=== PATIENT | male | born 1960 | race Caucasian/White ===

== ENCOUNTER 2020-06-29 14:01 | Outpatient (REF) | payer OTHER, SELFPAY | END 2020-06-29 14:02 | disposition home or self-care (01) | LOC: HO.LAB 14:01 | PROVIDERS: PCP Emergency Medicine; Visit Provider Internal Medicine | DX: Z20.828 Contact with and (suspected) exposure to other viral communicable diseases (principal) | CPT/HCPCS: C9803; U0003 ==

== ENCOUNTER 2020-07-30 07:59 | Outpatient (REF) | payer OTHER, SELFPAY | END 2020-07-30 08:00 | disposition home or self-care (01) | LOC: HO.LAB 07:59 | PROVIDERS: PCP Emergency Medicine; Visit Provider Internal Medicine | DX: Z20.822 Contact with and (suspected) exposure to COVID-19 (principal) | CPT/HCPCS: 36415; C9803; U0003 ==

== ENCOUNTER 2021-10-11 15:24 | Emergency (ER) | payer OTHER, SELFPAY ==
--- NOTE | 2021-10-11 15:58 | PC.NURSE ---
patient left prior to this RN being able to assess patient and triage them. noted to be ambulating without issue and in no obvious distress
== END 2021-10-11 15:59 | disposition left against medical advice (07) ==
PROVIDERS: Emergency Provider Emergency Medicine; PCP Student in an Organized Health Care Education/Training Program
DX: S09.90XA Unspecified injury of head, initial encounter (principal); W19.XXXA Unspecified fall, initial encounter; Y93.9 Activity, unspecified; Y92.9 Unspecified place or not applicable; Y99.0 Civilian activity done for income or pay